=== PATIENT | male | born 1935 | race Caucasian/White ===

== ENCOUNTER 2017-08-14 21:55 | Observation (INO) | payer OTHER ==
[~2017-08-14] VITALS: Ht 185.4 cm; Wt 100.8 kg
[~2017-08-14 21:55] MED LIST: ACCOLATE20 MG PO; ALLERGY RELIEF10 M5 PO; ALLERGY RELIEF10 MG PO; ALTACE5 MG PO; ASCORBIC ACID500 M3 PO; ASPIRIN325 MG; ASPIRIN325 MG PO; Altace PO; CLOPIDOGREL75 MG; CLOPIDOGREL75 MG PO; COLACE100 MG PO; COSOPT EYE DROPS5 ML LEFT EYE; CYCLOBENZAPRINE5 MG PO; DOCUSATE SODIU100 MG PO; DORZOLAMIDE-TIM10 ML; DORZOLAMIDE-TIM10 ML LEFT EYE; DOXYCYCLINE HY100 MG PO; ECOTRIN325 MG PO; ENDOCET 5-3251 EACH; ENDOCET 5-3251 EACH PO; ESOMEPRAZOLE MA40 MG PO; FLONASE16 G1 BOTH NARES; GABAPENTIN100 MG PO; HYDROCHLOROTHIA25 MG PO; HYDROCHLOROTHIA50 MG; HYDROCHLOROTHIA50 MG PO; Hydrodiuril,Oretic,E PO; IRON PO; KLOR-CON 88 MEQ; KLOR-CON 88 MEQ PO; LOPRESSOR50 MG PO; LUMIGAN 0.01% EYE DR; LUMIGAN 0.50 DROP/2. LEFT EYE; LUMIGAN 0.50 DROP/22 LEFT EYE; Lopressor PO; METOPROLOL TART50 MG; METOPROLOL TART50 MG PO; MICRO-K8 ME1 PO; MIRALAX17 GM PO; MIRALAX255 GM PO; Micro-K,Klor-Con PO; NEURONTIN100 MG PO; NEXIUM40 MG; NEXIUM40 MG PO; NORCO 5/3251 TABLET PO; PERCOCET 5/31 TABLET PO; PLAVIX75 MG PO; PREDNISONE20 MG PO; Percocet 5/325,Endoc PO; RAMIPRIL5 MG; RAMIPRIL5 MG PO; ROBITUSSIN AC,T10 ML PO; SALICYLIC ACID TP; TAMSULOSIN HCL0.4 MG PO; VITAMIN C1000 MG PO; VYTORIN 10/41 TABLET; VYTORIN 10/41 TABLET PO; VYTORIN 10/81 TABLET PO; Vytorin 10/40 PO; ZAFIRLUKAST20 M1 PO
[2017-08-14 22:22] LABS: HEMATOCRIT 45.1 % (38.0-50.0); HEMOGLOBIN 15.2 G/DL (12.5-16.6); MCH 31.3 PG (29.0-34.0); MCHC 33.7 G/DL (30.0-36.0); MCV 92.8 FL (86-99); PLATELET COUNT 163 K/uL (156-360); RBC DIS.WIDTH-CV 13.8 % (11.8-14.6); RBC DIS.WIDTH-SD 47.1 % (39-53); RED BLOOD COUNT 4.86 M/uL (4.00-5.50); WHITE BLOOD COUNT 8.9 K/uL (4.1-10.2)
[2017-08-14 22:31] LABS: CHLORIDE 106 mEq/L (99-109); SODIUM 140 mEq/L (136-147)
[2017-08-14 22:33] LABS: GLUCOSE 101 mg/dL (70-99)
[2017-08-14 22:36] LABS: CREATININE 0.9 mg/dL (0.6-1.3); GFR ESTIMATE (CALCULATED) > 59 mL/min/ (58.99-99999)
[2017-08-14 22:37] LABS: UREA NITROGEN (BUN) 22 mg/dL (9-23)
[2017-08-14 22:44] LABS: TROP-I INTERPRETATION NEGATIVE; TROPONIN-I < 0.01 ng/mL (0.0-0.30)
[2017-08-15] MEDS ORDERED: RAMIPRIL5 MG PO (00:22)
[2017-08-15] MEDS ORDERED: ATORVASTATIN CA40 MG PO (00:22)
[2017-08-15] MEDS ORDERED: METOPROLOL TART50 MG PO (00:23)
[2017-08-15] MEDS ORDERED: GABAPENTIN100 MG PO (00:23)
[2017-08-15] MEDS ORDERED: CLOPIDOGREL75 MG PO (00:24)
[2017-08-15] MEDS ORDERED: FLUTICASONE PRO16 GM BOTH NARES (00:25)
[2017-08-15] MEDS ORDERED: COLCHICINE0.6 M1 PO (00:26)
[2017-08-15] MEDS ORDERED: FLUOROURACIL40 GM TP (00:26)
[2017-08-15] MEDS ORDERED: ZAFIRLUKAST20 M1 PO (00:27)
[2017-08-15] MEDS ORDERED: CALCIPOTRIENE60 G1 TP (00:27)
[2017-08-15 01:08] VITALS: BP 142/78
[2017-08-15 04:04] LABS: HEMATOCRIT 41.3 % (38.0-50.0); HEMOGLOBIN 14.2 G/DL (12.5-16.6); MCH 31.6 PG (29.0-34.0); MCHC 34.4 G/DL (30.0-36.0); MCV 91.8 FL (86-99); PLATELET COUNT 170 K/uL (156-360); RBC DIS.WIDTH-CV 13.9 % (11.8-14.6); RBC DIS.WIDTH-SD 46.8 % (39-53); WHITE BLOOD COUNT 8.1 K/uL (4.1-10.2)
[2017-08-15 04:19] LABS: ALBUMIN 3.7 g/dL (3.2-4.8); CHLORIDE 107 mEq/L (99-109); POTASSIUM 4.1 mEq/L (3.7-5.4); SODIUM 142 mEq/L (136-147)
[2017-08-15 04:21] LABS: GLUCOSE 97 mg/dL (70-99); TOTAL PROTEIN 5.9 g/dL (6.4-8.3)
[2017-08-15 04:23] LABS: TOTAL BILIRUBIN 0.7 mg/dL (0.0-1.0)
[2017-08-15 04:25] LABS: ALKALINE PHOSPHATASE 81 IU/L (3-129); CREATININE 0.8 mg/dL (0.6-1.3); GFR ESTIMATE (CALCULATED) > 59 mL/min/ (58.99-99999)
[2017-08-15 04:26] LABS: TROP-I INTERPRETATION NEGATIVE; TROPONIN-I < 0.01 ng/mL (0.0-0.30); UREA NITROGEN (BUN) 22 mg/dL (9-23)
[2017-08-15 04:27] LABS: AST (GOT) 17 IU/L (2-34)
[2017-08-15 04:28] LABS: ALT (GPT) 14 IU/L (3-49)
[2017-08-15 05:05] VITALS: BP 142/72
[2017-08-15 05:08] VITALS: BP 168/83
[2017-08-15 07:10] VITALS: BP 153/73
[2017-08-15 10:02] LABS: TROP-I INTERPRETATION NEGATIVE; TROPONIN-I < 0.01 ng/mL (0.0-0.30)
[2017-08-15 11:05] VITALS: BP 138/78
== END 2017-08-15 12:34 | disposition home or self-care (01) ==
LOC: EME 21:55 → 5WEST 23:31 → EDOF 23:31 → ENRESERV 23:33 → ENPENDDIS 08-15 → 5WEST 08-15 01:03
PROVIDERS: Internal Medicine
DX: R07.9 Chest pain, unspecified (principal); I25.10 Atherosclerotic heart disease of native coronary artery without angina pectoris; I10 Essential (primary) hypertension; E78.5 Hyperlipidemia, unspecified; K27.9 Peptic ulcer, site unspecified, unspecified as acute or chronic, without hemorrhage or perforation; H40.9 Unspecified glaucoma; Z98.890 Other specified postprocedural states; I25.2 Old myocardial infarction; Z87.442 Personal history of urinary calculi; M25.512 Pain in left shoulder; N28.1 Cyst of kidney, acquired; I35.0 Nonrheumatic aortic (valve) stenosis; Z86.718 Personal history of other venous thrombosis and embolism; Z95.5 Presence of coronary angioplasty implant and graft; Z79.82 Long term (current) use of aspirin; K21.9 Gastro-esophageal reflux disease without esophagitis
CPT/HCPCS: 71046; 71250; 80048; 80053; 84484; 85027; 93005; 99281; 99285; G0378

== ENCOUNTER → 2017-12-03 | Outpatient (CLI) | payer OTHER ==
[~2017-12-03] MED LIST changes: +ATORVASTATIN CA40 MG PO; +CALCIPOTRIENE60 G1 TP; +COLCHICINE0.6 M1 PO; +FLUOROURACIL40 GM TP; +FLUTICASONE PRO16 GM BOTH NARES
== END | disposition home or self-care (01) ==
LOC: NUC 07:08
DX: E05.10 Thyrotoxicosis with toxic single thyroid nodule without thyrotoxic crisis or storm (principal)
CPT/HCPCS: 78014; 78999; A9516